=== PATIENT | female | born 1970 | race Caucasian/White ===

== ENCOUNTER 2017-01-19 21:53 | Inpatient (IN) | payer BC ==
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
--- NOTE | ~2017-01-19 | DS ---
Discharge Summary [facility] [address] [place]. [address] NAME: KAYLA SANTOS : 74 STATUS : ADM IN [facility]#: [id number] AGE: 47 ADM/REG DATE : 01/19/17 MR#: [id number] REPORT SERV DATE: 01/30/17 DICTATED BY: WANDA PHILIP DATE: 01/30/17 REPORT STATUS : Draft TRANSCRIBED BY: MODL DATE: 01/30/17 ADMISSION DATE: 01/19/2017 DISCHARGE DATE: FINAL DIAGNOSES: 1. Status post sepsis. 2. Bilateral pneumonia. 3. Acute hypoxic respiratory failure, resolved. 4. Bipolar disorder. 5. Tobacco abuse. CONSULTING PHYSICIAN: Dr. Vega for Critical Care and Dr. Portillo for ID. HOSPITAL COURSE: Please refer to the H and P done by Dr. Rojas dated on 01/20/2017 and the interim discharge summary done by Dr. Vega done on 01/26/2017. Briefly, this is a 47-year old female, who has bipolar disorder, smoker, recurrent pneumonia. She was treated outpatient-johnson for possible pneumonia with azithromycin and prednisone. However, she got worse, got admitted, placed on BiPAP, continued to decline, went to the intensive care unit, intubated, and placed on the vent. Bronch was done, which was negative for any kind of organism. She was continued on antibiotics, diuretics, and steroids and she improved. She got out of the intensive care unit and did remarkably well since then. ID has been following the patient and discontinued antibiotics, and she continued to do well and on discharge, she is saturating 100% on room air and walking around the halls. The patient expresses her wishes to go home, ID agrees, so we will be discharging her with the above diagnosis. She will be following up with Dr. David in a week's time, and she will be continuing her home medications of Cogentin 0.5 mg twice a day, Tegretol 200 mg at bedtime and 400 mg in the morning, Ativan 1 mg four times a day, nicotine patch 21 mg a day, Seroquel 200 mg at bedtime, trazodone 100 mg at bedtime, Ambien 10 mg at bedtime as needed and she will get a prescription for Medrol Dosepak to start tomorrow until it finishes, albuterol two puffs q.6 p.r.n. shortness of breath and Symbicort two puffs b.i.d. The patient will follow up with Dr. Garcia David in a week's time. This has been explained to her in front of her . TIME SPENT: 35 minutes. DICTATED BY: Michelle Potts/JOHANA Wanda Philip M.D. / [id number] Discharge Summary [address] [address] NAME: KAYLA SANTOS : 74 STATUS : ADM IN PAT#: [id number] AGE: 47 ADM/REG DATE : 01/19/17 MR#: [id number] REPORT SERV DATE: 01/30/17 DICTATED BY: WANDA PHILIP DATE: 01/30/17 REPORT STATUS : Draft TRANSCRIBED BY: JOHANA DATE: 01/30/17 CC: Michelle Potts M.D.
--- NOTE | ~2017-01-19 | CN ---
Consultation Report [facility] [address] [place]. [address] NAME: KAYLA COOPER : 74 STATUS : ADM IN PAT#: [id number] AGE: 47 ADM/REG DATE : 01/19/17 MR#: [id number] REPORT SERV DATE: 01/21/17 DICTATED BY: ANNA DIEZ IV DATE: 01/21/17 REPORT STATUS : Draft TRANSCRIBED BY: JOHANA DATE: 01/21/17 CRITICAL CARE CONSULT DATE OF CONSULTATION: 01/21/2017 REASON FOR REQUEST: Diffuse pulmonary infiltrates consistent with bacterial pneumonia with hypoxemic respiratory failure. HISTORY OF PRESENT ILLNESS: History was obtained from the patient and the records. Ms. Cooper is a 47-year-old female with a history of tobacco dependency, bipolar disorder, and recurrent pneumonias, who was transferred to the ICU for worsening oxygenation and pulmonary infiltrates. The patient reports that she developed symptoms of a respiratory infection about 10 days ago. This was predominantly a bronchitis though because of a worsening cough, was given a Z-Rod and prednisone. She noted clinical improvement, however, had recurrence of symptoms on Sunday. She presented to [facility] Emergency Room and is admitted on the 01/20/2017 with bilateral infiltrates. She received some IV fluids and was started on Rocephin and azithromycin. She had increasing oxygen needs and worsening shortness of breath for which an evaluation was performed today demonstrating significantly worse bilateral pulmonary infiltrates and now requiring 100% non-rebreather. Urine output is not documented; however, the patient has over 5 L of intake IV and oral since the presentation. The cough has been dry and nonproductive. She initially complained of fever sensation, however, that has not recurred recently. She does complain of dyspnea. There were no exposure to organic materials usually associated with hypersensitivity pneumonitis. She has no exposure to any ill individuals. There was no loss consciousness or aspiration. She denies rash or new arthralgias or arthritis. The patient has had recurrent pneumonias in the past and can document three where reportedly she had pulmonary infiltrates. She denies episodes of recurrent sinusitis. There is no history of known connective tissue disorder. Because of worsening status, she was moved to the ICU and currently placed on Vapotherm therapy. PULMONARY HISTORY: Remarkable for no history of childhood asthma, known adult obstructive lung disease though has had recurrent pneumonias as noted above. She is a current smoker though reportedly quit a week and a half ago when she became ill. She has an almost 30-pack year-smoking history. She is reportedly up-to-date on her seasonal influenza vaccine. PAST MEDICAL HISTORY: 1. Recurrent pneumonias. 2. Bipolar disorder. 3. Tobacco dependency. PAST SURGICAL HISTORY: 1. Lumbar spine surgery. 2. Cholecystectomy. 3. Appendectomy. Consultation Report [facility] [address] [place]. [address] NAME: KAYLA COOPER : 74 STATUS : ADM IN PAT#: [id number] AGE: 47 ADM/REG DATE : 01/19/17 MR#: [id number] REPORT SERV DATE: 01/21/17 DICTATED BY: ANNA DIEZ IV DATE: 01/21/17 REPORT STATUS : Draft TRANSCRIBED BY: JOHANA DATE: 01/21/17 4. Ovarian cyst surgery on two occasions. ALLERGIES: NAVANE. CURRENT MEDICATIONS: The patient is on Ativan 1 mg four times a day, Cogentin 0.5 mg twice a day, Desyrel 100 mg at bedtime, Habitrol patch 21 mg daily, Levaquin 750 mg daily, vancomycin per Pharmacy, Lovenox 40 mg daily, Proventil q.2 hours p.r.n., DuoNeb q.4 hours while awake and q.4 hours as needed, Pulmicort Respules 1 mg twice a day, Brovana unit dose twice a day, and several these are just being added Seroquel 300 mg at nighttime, Solu- Medrol 40 mg IV b.i.d., Tegretol 200 mg at bedtime and 400 mg in the morning, and Zosyn 3.375 g q.8 hours. SOCIAL HISTORY: Remarkable for the tobacco use as above. There is no alcohol or illicit drug use. She is and has one child. FAMILY HISTORY: Remarkable for mother with diabetes, coronary artery disease, and myelofibrosis. Father with metastatic thyroid cancer. REVIEW OF SYSTEMS: 14-system reviewed. Pertinent positives as noted above. PHYSICAL EXAMINATION: GENERAL: This is a middle-aged female, in moderate respiratory distress. VITAL SIGNS: Temperature is 99.7, respiratory rate is 36, heart rate is 98, saturations are currently 100% on Vapotherm, and blood pressure is 109/54. HEENT: Normocephalic and atraumatic. Extraocular movements are intact. Pupils react to light. Sclerae and conjunctivae normal. She has a Vapotherm nasal cannula in place. She has a Mallampati II airway with a small mouth. Good dentition. No oral lesions are noted. NECK: Without any palpable lymphadenopathy or thyromegaly. CHEST: The patient has inspiratory crackles and squeaks, and she coughs with each inspiratory effort. No wheezes or rhonchi noted. CARDIOVASCULAR: Jugular venous pulsations appear to be approximately 6 cm. She has 2+ carotid upstrokes. No obvious bruit. She has a regular, almost tachycardic S1, S2 with no clear murmur, S3, S4. Peripheral pulses are intact. ABDOMEN: Surgical scars noted. Soft, nontender. There are normoactive bowel sounds. There is no palpable hepatosplenomegaly or mass. EXTREMITIES: Demonstrate no cyanosis, clubbing, edema, or palpable cords. There is no rash or arthritis. NEUROLOGIC: Strength is 5/5 and sensation intact to light touch. LABORATORY DATA: Chest x-ray demonstrates worsening bilateral pulmonary infiltrates. Echocardiogram yesterday demonstrated normal left ventricular function. CBC: Hemoglobin 9.9, hematocrit 28.3, platelet count was 401,000, white blood cell count is Consultation Report [address] [address] NAME: KAYLA COOPER : 74 STATUS : ADM IN [facility]#: [id number] AGE: 47 ADM/REG DATE : 01/19/17 MR#: [id number] REPORT SERV DATE: 01/21/17 DICTATED BY: ANNA DIEZ IV DATE: 01/21/17 REPORT STATUS : Draft TRANSCRIBED BY: MODLorena DATE: 01/21/17 22.6. INR is 1.3. Chemistry: Sodium 134, potassium 3.4, chloride 101, bicarb 25, BUN 2, creatinine 0.4, glucose of 110. Albumin is 2.4, alkaline phosphatase is 147, TSH is normal. Troponin was negative. Tegretol is 5.8. Blood gas shows pH 7.46, pCO2 of 33, and pO2 of 38 on 6 L. ASSESSMENT AND PLAN: 1. Respiratory. The patient likely has infectious process cause; however, connective tissue serologies will be obtained. Vapotherm was started at 40 L/minute with 100% FiO2 and temperature of 37 Celsius. We will add Brovana to the previous Pulmicort and change albuterol to DuoNebs q.4 hours while awake. Make albuterol p.r.n. Steroids will be given Solu-Medrol 40 mg q.12 hours for severe pneumonia. Daily x-ray will be obtained. Oxygen will be titrated to maintain saturation in the 90% through 94% range. Tessalon Perles 200 mg daily for the cough and intubation if she worsens. 2. Infectious disease. Agree with broadening the antibiotic coverage as noted above. With the recurrent pneumonias, quantitative immunoglobulins will be obtained as well as IgG subclass levels. Florastor will be given one twice a day. Sputum will be sent for Gram stain culture, but all possible. HIV will be obtained. 3. Renal. We will replace the patient's potassium. Magnesium and phosphate level be obtained. Electrolyte replacement per protocol has been ordered. 4. Neurologic. Habitrol patch for tobacco dependency. We will continue the psychiatric medications. Discontinue the Ativan and give Precedex if needed. 5. Cardiovascular. We will keep the fluid balance even. We will INT IV. We will follow the blood pressure. 6. Hematologic. Lovenox for deep vein thrombosis prophylaxis. 7. Endocrinologic. Insulin sliding scale, on the steroids. Thyroid functions were normal. 8. Gastrointestinal. Clear liquids until we see which direction she goes. Protonix for gastrointestinal prophylaxis. The patient will have a Kincaid placed. Thank you for consulting us. The patient will be moved to the ICU, and we will assume primary care. Total time seen is from 0930 hours to 1025 hours for 55 minutes of critical care time. JIM/MODL Anna Diez IV, M.D. / [id number] CC: Michelle Saldivar IV, M.D.
--- NOTE | ~2017-01-19 | OP ---
Record Of Operation [facility] [address] [place] [address] NAME: KAYLA SANTOS : 74 STATUS : ADM IN PAT#: [id number] AGE: 47 ADM/REG DATE : 01/19/17 MR#: [id number] REPORT SERV DATE: 01/23/17 DICTATED BY: LISA VEGA DATE: 01/23/17 REPORT STATUS : Draft TRANSCRIBED BY: MODL DATE: 01/23/17 DATE OF PROCEDURE: 01/23/2017 PROCEDURE: Bronchoscopy with BAL. REASON: The patient with progressive infiltrates, hypoxic respiratory failure requiring intubation and mechanical ventilation. Progressive infiltrates despite broad-spectrum antibiotic therapy. Risks and benefits of the procedure were discussed with the patient's , who gave consent for the procedure. DESCRIPTION OF PROCEDURE: The patient was very well sedated during the procedure and received 50 mg of IV rocuronium to avoid further coughing or distress since the patient easily desaturates. The vent settings during this bronchoscopy were tidal volume of 440, rate of 12, FiO2 of 100%, with 8 of PEEP. The oxygen saturation remained 100% throughout the procedure. The bronchoscope was inserted into the existing 7-1/2 endotracheal tube, it was Olympus OER-pro. The leslie was sharp. Both the left and the right lung were sequentially examined and showed no endobronchial lesions. Slight friability of the mucosa was noted. No abnormalities were seen throughout the airways. The bronchoscope was wedged in the right lower lobe was lavaged with a total of 120 mL of sterile normal saline. The washings were collected in a trap and are to be sent for Gram stain, culture, cytology, PCP, fungal stain and culture, differential cell count, and AFB. /JOHANA Lisa Vega M.D. / [id number] CC: Michelle Saldivar IV, M.D.
--- NOTE | ~2017-01-19 | OP ---
Record Of [facility] [address] [place]. [address] NAME: KAYLA COOPER : 74 STATUS : ADM IN PAT#: [id number] AGE: 47 ADM/REG DATE : 01/19/17 MR#: [id number] REPORT SERV DATE: 01/23/17 DICTATED BY: KANDI MONTALVO DATE: 01/22/17 REPORT STATUS : Draft TRANSCRIBED BY: MODL DATE: 01/22/17 DATE OF PROCEDURE: 01/22/2017 PULMONARY CRITICAL CARE PROCEDURE NOTE PROCEDURE: Endotracheal intubation. INDICATION: Hypoxemic respiratory failure with worsening respiratory distress despite maximal Vapotherm. PREMEDICATION: 20 mg of etomidate IV x1, 50 mg of rocuronium IV x1, Precedex and fentanyl infusions postintubation for a ventilator sedation. PROCEDURE IN DETAILS: After explaining the concept of intubation, mechanical ventilation to Ms. oCoper, who was awake, cooperative, and interactive despite her respiratory distress, a decision was made to proceed with endotracheal intubation for invasive mechanical ventilation due to refractory hypoxemia despite maximal Vapotherm support. She was premedicated with RSI medications as above and positioned in usual fashion. A #3 GlideScope was advanced in her mouth and used to clearly visualize her vocal cords through which a 7.0 endotracheal tube was advanced without difficulty and secured to the patient at a depth of approximately 20 cm at the teeth. A followup x-ray was requested following intubation. There were bilateral breath sounds. Positive color change on CO2 detector. Absent breath sounds over the fundus of the stomach with bagging and condensation in the tube with bagging. A followup chest x-ray was requested and an OG tube was inserted, and a KUB is also requested. Her was updated on the events of the evening following intubation. RADHA/JOHANA Kandi Montalvo MD / [id number] CC: Michelle Saldivar IV, M.D.
--- NOTE | ~2017-01-19 | HP ---
History And Physical [id number] [place]. [address] NAME: KAYLA SANTOS : 74 STATUS : ADM IN [facility]#: [id number] AGE: 47 ADM/REG DATE : 01/19/17 MR#: [id number] REPORT SERV DATE: 01/20/17 DICTATED BY: DANIKA MCKEON DATE: 01/20/17 REPORT STATUS : Draft TRANSCRIBED BY: MODL DATE: 01/20/17 DATE OF ADMISSION: 01/19/2017 CHIEF COMPLAINT: A 47-year-old female, presenting with fevers, chills, and chest pain. HISTORY OF PRESENT ILLNESS: The patient's history was obtained through careful interview with the patient and her , coupled with review of [facility] medical records. The patient developed bronchitis about two and half weeks ago. She was placed on a Z-Rod and prednisone which she has just started about five days ago but despite this has continued to have a cough that is nonproductive, dyspnea on exertion, and chest pain. She describes chest discomfort at the base of her lungs, an aching quality, sharp quality as well, 9/10 severity exacerbated by coughing. She describes fevers and chills for a few days now, and today had an episode of vomiting and has been suffering from nausea for several days with a very poor appetite. No diarrhea, no lightheadedness. She has had a slight headache. No rash, no sinus drainage. No sore throat. REVIEW OF SYSTEMS: Otherwise, a 14-point review of systems was obtained and was negative. PAST MEDICAL HISTORY: 1. Bipolar disorder with depression and anxiety. 2. Recurrent pneumonia in 2012, 2014, and 2015. 3. COPD. PAST SURGICAL HISTORY: 1. Lumbar spine surgery. 2. Cholecystectomy. 3. Appendectomy. 4. Ovarian cyst surgery x2. ALLERGIES: TO NAVANE. SOCIAL HISTORY: Quit smoking 1-1/2 weeks ago. No alcohol abuse. She is . Lives in [place], [place]. She has a 4-1/2-year-old son. The patient is a homemaker. FAMILY HISTORY: Heart disease, cancer, COPD, and diabetes. CURRENT MEDICATIONS: Include Z-Rod, Cogentin 0.5 mg p.o. b.i.d., Tegretol 200 mg at bedtime and 400 mg in the morning, Advil p.r.n., Ativan 1 mg p.o. 4 times a day, nicotine patch, prednisone 20 mg p.o. b.i.d., Seroquel 300 mg p.o. daily, Desyrel 100 mg p.o. q.h.s., Ambien 10 mg at bedtime. History And Physical [address] [address] NAME: KAYLA SANTOS : 74 STATUS : ADM IN [facility]#: [id number] AGE: 47 ADM/REG DATE : 01/19/17 MR#: [id number] REPORT SERV DATE: 01/20/17 DICTATED BY: DANIKA MCKEON DATE: 01/20/17 REPORT STATUS : Draft TRANSCRIBED BY: JOHANA DATE: 01/20/17 PHYSICAL EXAMINATION: VITAL SIGNS: Temperature 100.2, pulse 108, blood pressure 130/64, respiratory rate 30, O2 saturation 95% on 2 L nasal cannula, and 89% on room air. GENERAL: An ill-appearing female, in evidence of some distress secondary to cough and chest pain. HEENT: Pupils are equal, round, and reactive to light. No conjunctival pallor. No scleral icterus. Nares are patent. Oropharynx is clear of obstruction. Moist mucous membranes. NECK: Trachea midline. No thyromegaly. LYMPH: No cervical lymphadenopathy. No supraclavicular lymphadenopathy. RESPIRATORY: The patient has dense rhonchi at the base of each lung and diminished breath sounds. I do not however, appreciate any egophony. The patient has some scattered expiratory wheezes but not too severe and a prolonged expiratory phase, a labored respiratory effort overall. CARDIOVASCULAR: Tachycardic, regular rhythm. No murmurs, rubs, or gallops. No extremity edema is appreciated. ABDOMEN: Soft, nontender, nondistended. Normal bowel sounds auscultated throughout. No hepatosplenomegaly. DERMATOLOGICAL: Warm and dry extremities. No pallor, no cyanosis. PSYCHIATRIC: Normal affect. Good mood. Alert and oriented x3. LABORATORY DATA: White blood cell count 32.9, hemoglobin 12, hematocrit 34, platelets 466. Sodium 128 from baseline of 138, potassium 3.4, chloride 94, bicarb 22, BUN , glucose 107. STUDIES: 1. Chest x-ray by my own evaluation shows basilar bilateral pneumonia. 2. EKG by my own evaluation shows sinus tachycardia. ASSESSMENT AND PLAN: 1. Sepsis with lactic acid of 2.0, tachycardia, hypoxia, white blood cell count of 32.9. Check blood cultures. Place on appropriate IV antibiotics. 2. Bilateral pneumonia. Check blood cultures. Place on IV antibiotics. 3. Bipolar disorder. 4. Hyponatremia. This seems to be a hypovolemic hyponatremia by exam and history. Place on IV fluids. We will also check SIADH studies. 5. Chronic obstructive pulmonary disease. No active wheezes. KPL/MODL Danika Mckeon M.D. / [id number] History And Physical [address] [address] NAME: KAYLA SANTOS : 74 STATUS : ADM IN [facility]#: [id number] AGE: 47 ADM/REG DATE : 01/19/17 MR#: [id number] REPORT SERV DATE: 01/20/17 DICTATED BY: DANIKA MCKEON DATE: 01/20/17 REPORT STATUS : Draft TRANSCRIBED BY: JOHANA DATE: 01/20/17 CC: MD Garcia Fernández M.D.
--- NOTE | ~2017-01-19 | IDS ---
Interim Discharge Summary [facility] [address] [place]. [address] NAME: KAYLA SANTOS : 74 STATUS : ADM IN PAT#: [id number] AGE: 47 ADM/REG DATE : 01/19/17 MR#: [id number] REPORT SERV DATE: 01/26/17 DICTATED BY: LISA VEGA DATE: 01/26/17 REPORT STATUS : Draft TRANSCRIBED BY: MODL DATE: 01/26/17 ADMISSION DATE: 01/19/2017 DISCHARGE DATE: This is a 47-year-old patient with a history of heavy smoking and bipolar disease and recurrent pneumonias transferred for hypoxic respiratory failure and worsening pulmonary infiltrates to the MICU on the . For details, please see consultation from Dr. Diez and H and P from Dr. Roger Rojas. The patient was started on BiPAP and continued to decline with regard to her respiratory status, finally requiring intubation and mechanical ventilation on the 22 of January. The patient apparently was treated as an outpatient with a Z-Rod and prednisone and apparently has had recurrent pneumonias. Immunoglobulin levels were sent and actually were not critically low. TOMMIE was within normal limits. HIV was nonreactive. Influenza A and B were negative. Strep pneumoniae antigen and strep Legionella antigen were both negative. ANCA was negative. Anti-IgA antibody, IgG was less than 16. After intubation, the patient underwent bronchoscopy the following day with BAL. No PCP was noted. No evidence of malignancy was seen on cytology. Normal kelly has grown out of one of the bronchial washing specimen. Fungus was not seen on stain. Cultures are still pending. No acid-fast seen and the patient was continued on levofloxacin, Zosyn, and vancomycin. Infectious Diseases was consulted because of the progressive nature of the infiltrates to assist in any further antibiotic management. The patient just continued to improve on her own and along with diuretics and was continued on IV steroids which are being weaned. No significant antibiotic changes were made and the x-ray seemed to improve on its own without any further intervention. The patient was then successfully extubated on the 26 of January. And currently is on a nasal cannula and continuing bronchodilator protocol. She is still an active smoker before she was admitted and so she continues on a nicotine patch. She has a history of bipolar disorder and continues on her usual medications. The plan will be to progress her diet and activity and if she continues to improve, she can be transferred back to the Hospitalist Service. /JOHANA Lisa Vega M.D. / [id number] CC: Michelle Saldivar IV, M.D.
[2017-01-19 20:45] LABS: HEMOGLOBIN 12.2 g/dL (12.0-16.0); MEAN CORPUS HGB CONC 35.5 g/dL (32.0-36.0); MEAN PLATELET VOLUME 7.7 fL (9.2-13.0); PLATELET COUNT 466 10/3/uL (150-400); RBC DISTRIBUTION WIDTH 12.9 % (12.0-16.0); RED CELL COUNT 3.81 10/6/uL (4.0-5.6)
[2017-01-19 20:47] LABS: ER CBC TAT 0 Hrs 08 Mins; HEMATOCRIT 34.4 % (36.0-48.0); MANUAL DIFF YES %; MEAN CORPUSCULAR VOLUME 90.3 fL (80-100); WHITE BLOOD CELLS 32.9 10/3/uL (4.5-10.5)
[2017-01-19 21:01] LABS: ALBUMIN 3.2 G/DL (3.5-5.0); CALCIUM, SERUM 8.6 MG/DL (8.5-10.4); CHLORIDE, SERUM 94 MMOL/L (96-112); GFR AFRICAN AMERICAN 128 ML/MIN (>=60); GFR NON AFRICAN AMERICAN 110 ML/MIN (>=60); POTASSIUM, SERUM 3.4 MMOL/L (3.5-5.3); SGOT(AST) 33 U/L (5-40); SGPT(ALT) 18 U/L (5-65); TOTAL BILIRUBIN 0.4 MG/DL (0-1.2); TOTAL PROTEIN 6.8 G/DL (6.0-8.5)
[2017-01-19 21:03] LABS: A/G RATIO 0.9 (0.7-1.9); ALKALINE PHOSPHATASE 127 U/L (45-117); BUN (BLOOD UREA NITROGEN) < 1 MG/DL (6-23); CO2 (CARBON DIOXIDE) 22 MMOL/L (24-34); GLOBULIN 3.6 G/DL (2.5-4.1); GLUCOSE, SERUM 107 MG/DL (60-99); SODIUM, SERUM 128 MMOL/L (135-148)
[2017-01-19 21:09] LABS: BAND NEUTROPHILS 8 %; ER DIFF TAT 0 Hrs 30 Mins; LYMPHOCYTES 1 %; LYMPHOCYTES ABSOLUTE (CALC) 0.33 10/3/uL (0.67-4.30); MONOCYTES 1 %; MONOCYTES ABSOLUTE (CALC) 0.33 10/3/uL (0.21-1.20); NEUTROPHILS ABSOLUTE (CALC) 32.24 10/3/uL (2.02-8.40); SEGMENTED NEUTROPHIL (0) 90 %; TOTAL NUCLEATED CELLS 100
[2017-01-19 21:10] LABS: PLATELET ESTIMATE SLT INC (ADEQUATE); RBC MORPHOLOGY NORM (NORMAL)
[~2017-01-19 21:53] MED LIST: AMB10 PO; DCN100 PO; DEPAKOT500 PO; ELDERTONIC PO; FERROUS SULF325 M1 PO; KLONO1 PO; MULTIVITAMI1 PO; PRISTIQ100 MG PO; SELENIUM PO; SEROQUEL XR200 MG PO; SEROQUEL300 MG PO; VITAMIN D31000 UNIT PO; ZOL50 PO
[2017-01-19 22:10] LABS: INFLUENZA A SCREEN NEGATIVE (NEGATIVE); INFLUENZA B SCREEN NEGATIVE (NEGATIVE)
[2017-01-19 22:49] LABS: INTERNATIONAL NORMAL RATI 1.2 UNITS (-); PARTIAL THROMBO TIME 31.5 SEC (22.5-37.2); PROTIME (NOT ORD) 14.6 SEC (12.0-14.5)
[2017-01-19 22:53] LABS: PROCALCITONIN 0.65 ng/mL (<0.5)
[2017-01-19] MEDS ORDERED: ATV1 PO (23:27)
[2017-01-19] MEDS ORDERED: TRAZ100 PO (23:28)
[2017-01-19] MEDS ORDERED: Z-PAK PO (23:29)
[2017-01-19] MEDS ORDERED: P20 PO (23:29)
[2017-01-19] MEDS ORDERED: TEG200 PO ×2 (23:30)
[2017-01-19] MEDS ORDERED: COG0.5 PO (23:31)
[2017-01-19] MEDS ORDERED: SEROQUEL300 MG PO (23:31)
[2017-01-19] MEDS ORDERED: AMB10 PO (23:32)
[2017-01-19] MEDS ORDERED: ADVIL PO (23:33)
[2017-01-19] MEDS ORDERED: HABIT21 TOP (23:34)
[2017-01-20 05:28] LABS: HEMATOCRIT 31.1 % (36.0-48.0); HEMOGLOBIN 10.9 g/dL (12.0-16.0); MEAN CORPUSCULAR HEMOGLOB 31.5 pg (26.0-34.0); MEAN CORPUSCULAR VOLUME 89.9 fL (80-100); MEAN PLATELET VOLUME 7.8 fL (9.2-13.0); PLATELET COUNT 441 10/3/uL (150-400); RBC DISTRIBUTION WIDTH 13.1 % (12.0-16.0); RED CELL COUNT 3.46 10/6/uL (4.0-5.6)
[2017-01-20 05:38] LABS: INTERNATIONAL NORMAL RATI 1.3 UNITS (-); PROTIME (NOT ORD) 16.5 SEC (12.0-14.5)
[2017-01-20 05:46] LABS: A/G RATIO 0.8 (0.7-1.9); ALBUMIN 2.7 G/DL (3.5-5.0); BUN (BLOOD UREA NITROGEN) 3 MG/DL (6-23); CALCIUM, SERUM 8.5 MG/DL (8.5-10.4); CHLORIDE, SERUM 102 MMOL/L (96-112); CO2 (CARBON DIOXIDE) 26 MMOL/L (24-34); CPK 68 U/L (0-200); CREATININE 0.43 MG/DL (0.55-1.02); GFR AFRICAN AMERICAN 142 ML/MIN (>=60); GFR NON AFRICAN AMERICAN 123 ML/MIN (>=60); GLOBULIN 3.2 G/DL (2.5-4.1); GLUCOSE, SERUM 103 MG/DL (60-99); POTASSIUM, SERUM 3.6 MMOL/L (3.5-5.3); SGOT(AST) 31 U/L (5-40); SGPT(ALT) 17 U/L (5-65); TEGRETOL (CARBAMAZEPINE) 5.8 MCG/ML (4.0-10.0); TOTAL BILIRUBIN 0.8 MG/DL (0-1.2); TOTAL PROTEIN 5.9 G/DL (6.0-8.5); TROPONIN I <0.02 NG/ML (<0.05); ULTRASENSITIVE TSH 0.817 MCIU/ML (0.358-3.740)
[2017-01-20 05:48] LABS: MANUAL DIFF YES %; WHITE BLOOD CELLS 28.4 10/3/uL (4.5-10.5)
[2017-01-20 06:00] LABS: ALKALINE PHOSPHATASE 111 U/L (45-117); CK-MB 0.8 NG/ML; SODIUM, SERUM 136 MMOL/L (135-148)
[2017-01-20 06:05] LABS: PROCALCITONIN 2.43 ng/mL (<0.5)
[2017-01-20 07:15] LABS: BAND NEUTROPHILS 4 %; EOSINOPHILS 1 %; EOSINOPHILS ABSOLUTE (CALC) 0.28 10/3/uL (0.0-0.53); LYMPHOCYTES 8 %; LYMPHOCYTES ABSOLUTE (CALC) 2.27 10/3/uL (0.67-4.30); MONOCYTES 2 %; MONOCYTES ABSOLUTE (CALC) 0.57 10/3/uL (0.21-1.20); NEUTROPHILS ABSOLUTE (CALC) 25.28 10/3/uL (2.02-8.40); PLATELET ESTIMATE SLT INC (ADEQUATE); SEGMENTED NEUTROPHIL (0) 85 %; TOTAL NUCLEATED CELLS 100
[2017-01-20 07:16] LABS: RBC MORPHOLOGY NORM (NORMAL)
[2017-01-20 16:04] LABS: ASCORBIC ACID (UR NOT ORDER) NEG (NEG); BILIRUBIN, URINE NEGATIVE (NEG); KETONE, URINE NEGATIVE (NEG); LEUKOCYTE ESTERASE(NOT OR NEG (NEG); WBC (NOT ORDERED) (RFLEX) 1 (0-5)
[2017-01-20 17:28] LABS: AMPHETAMINES (NOT ORD) NEG (NEG); BARBITURATES (NOT ORDERED NEG (NEG); BENZODIAZEPINES (NOT ORD) POS (NEG); CANNABINOIDS (THC) NEG (NEG); COCAINE (NOT ORDERED) NEG (NEG); OPIATES POS (NEG); PHENCYCLIDINE(PCP) NEG (NEG); TRICYCLICS POS (NEG)
[2017-01-21 06:21] LABS: HEMATOCRIT 28.3 % (36.0-48.0); HEMOGLOBIN 9.9 g/dL (12.0-16.0); MEAN CORPUSCULAR HEMOGLOB 31.9 pg (26.0-34.0); MEAN CORPUSCULAR VOLUME 91.3 fL (80-100); PLATELET COUNT 401 10/3/uL (150-400); RBC DISTRIBUTION WIDTH 13.4 % (12.0-16.0); WHITE BLOOD CELLS 22.6 10/3/uL (4.5-10.5)
[2017-01-21 06:22] LABS: MANUAL DIFF YES %
[2017-01-21 06:29] LABS: A/G RATIO 0.8 (0.7-1.9); ALBUMIN 2.4 G/DL (3.5-5.0); ALKALINE PHOSPHATASE 147 U/L (45-117); BUN (BLOOD UREA NITROGEN) 2 MG/DL (6-23); CALCIUM, SERUM 8.2 MG/DL (8.5-10.4); CHLORIDE, SERUM 101 MMOL/L (96-112); CO2 (CARBON DIOXIDE) 25 MMOL/L (24-34); CREATININE 0.48 MG/DL (0.55-1.02); GFR AFRICAN AMERICAN 137 ML/MIN (>=60); GFR NON AFRICAN AMERICAN 118 ML/MIN (>=60); GLOBULIN 3.2 G/DL (2.5-4.1); GLUCOSE, SERUM 110 MG/DL (60-99); POTASSIUM, SERUM 3.4 MMOL/L (3.5-5.3); SGOT(AST) 28 U/L (5-40); SGPT(ALT) 14 U/L (5-65); SODIUM, SERUM 134 MMOL/L (135-148); TOTAL BILIRUBIN 0.7 MG/DL (0-1.2); TOTAL PROTEIN 5.6 G/DL (6.0-8.5)
[2017-01-21 06:45] LABS: LYMPHOCYTES 5 %; LYMPHOCYTES ABSOLUTE (CALC) 1.13 10/3/uL (0.67-4.30); MONOCYTES 6 %; MONOCYTES ABSOLUTE (CALC) 1.36 10/3/uL (0.21-1.20); NEUTROPHILS ABSOLUTE (CALC) 20.11 10/3/uL (2.02-8.40); PLATELET ESTIMATE SLT INC (ADEQUATE); RBC MORPHOLOGY NORM (NORMAL); SEGMENTED NEUTROPHIL (0) 89 %; TOTAL NUCLEATED CELLS 100
[2017-01-21 09:18] LABS: ALLENS TEST Pos; CARBOXYHEMOGLOBIN 0.1 % (0-3); DEVICE HFNC; HCO3 (ACTUAL BICARBONATE) 23.3 MEQ/L (23-27); HEMOBLOGIN CONTENT 11.6 G/DL (12-16); INSTRUMENT SERIAL # 35151; METHEMOGLOBIN 0.5 % (0-3); O2 CONTENT 12.1 VOL% (18-24); OPERATOR ID 14335; PCO2 (CO2 TENSION) 33 MMHG (35-45); PO2 (O2 TENSION) 38 MMHG (79-93); SAMPLE Arterial; pH 7.46 (7.37-7.43)
[2017-01-21 11:45] LABS: IMMUNOGLOBULIN A 160 MG/DL (70-420); IMMUNOGLOBULIN M 40 MG/DL (30-270)
[2017-01-21 12:03] LABS: PHOSPHORUS, SERUM 2.5 MG/DL (2.5-4.5)
[2017-01-22 05:08] LABS: BASOPHILS 0.1 %; BASOPHILS ABSOLUTE 0.01 10/3/uL (0.0-0.16); EOSINOPHILS 0.1 %; EOSINOPHILS ABSOLUTE 0.01 10/3/uL (0.0-0.53); HEMOGLOBIN 9.2 g/dL (12.0-16.0); IMMATURE GRANULOCYTES 0.3 %; IMMATURE GRANULOCYTES ABSOLUTE 0.05 10/3/uL (0.0-0.11); LYMPHOCYTES 3.7 %; LYMPHOCYTES ABSOLUTE 0.58 10/3/uL (0.67-4.30); MEAN CORPUS HGB CONC 34.1 g/dL (32.0-36.0); MEAN CORPUSCULAR HEMOGLOB 31.5 pg (26.0-34.0); MEAN CORPUSCULAR VOLUME 92.5 fL (80-100); MONOCYTES 2.6 %; MONOCYTES ABSOLUTE 0.41 10/3/uL (0.21-1.20); NEUTROPHILS 93.2 %; PLATELET COUNT 345 10/3/uL (150-400); RBC DISTRIBUTION WIDTH 13.3 % (12.0-16.0); RED CELL COUNT 2.92 10/6/uL (4.0-5.6); WHITE BLOOD CELLS 15.7 10/3/uL (4.5-10.5)
[2017-01-22 05:16] LABS: MANUAL DIFF NO %
[2017-01-22 05:21] LABS: BUN (BLOOD UREA NITROGEN) 3 MG/DL (6-23); CALCIUM, SERUM 8.7 MG/DL (8.5-10.4); CHLORIDE, SERUM 100 MMOL/L (96-112); CO2 (CARBON DIOXIDE) 25 MMOL/L (24-34); CREATININE 0.54 MG/DL (0.55-1.02); GFR AFRICAN AMERICAN 132 ML/MIN (>=60); GFR NON AFRICAN AMERICAN 114 ML/MIN (>=60); GLUCOSE, SERUM 117 MG/DL (60-99); PHOSPHORUS, SERUM 3.1 MG/DL (2.5-4.5); SODIUM, SERUM 130 MMOL/L (135-148); VANCOMYCIN TROUGH 12.3 MCG/ML (10.0-20.0)
[2017-01-22 05:26] LABS: POTASSIUM, SERUM 4.3 MMOL/L (3.5-5.3)
[2017-01-22 09:18] LABS: ANA TITER <1:40 TITER
[2017-01-23 00:09] LABS: ALLENS TEST Pos; BE (BASE EXCESS) -3.2 MEQ/L (0 +/- 2.5); CARBOXYHEMOGLOBIN 0.3 % (0-3); HCO3 (ACTUAL BICARBONATE) 22.5 MEQ/L (23-27); HEMOBLOGIN CONTENT 10.7 G/DL (12-16); INSTRUMENT SERIAL # 8083; METHEMOGLOBIN 0.3 % (0-3); MODE CMV; O2 CONTENT 14.9 VOL% (18-24); OPERATOR ID 32193; PCO2 (CO2 TENSION) 43 MMHG (35-45); PO2 (O2 TENSION) 128 MMHG (79-93); SAMPLE Arterial; TIDAL VOLUME 340 ML; pH 7.34 (7.37-7.43)
[2017-01-23 04:16] LABS: BASOPHILS 0 %; EOSINOPHILS 0.1 %; EOSINOPHILS ABSOLUTE 0.01 10/3/uL (0.0-0.53); HEMATOCRIT 26.5 % (36.0-48.0); HEMOGLOBIN 9.1 g/dL (12.0-16.0); IMMATURE GRANULOCYTES 0.4 %; IMMATURE GRANULOCYTES ABSOLUTE 0.07 10/3/uL (0.0-0.11); LYMPHOCYTES 4.5 %; LYMPHOCYTES ABSOLUTE 0.79 10/3/uL (0.67-4.30); MEAN CORPUS HGB CONC 34.3 g/dL (32.0-36.0); MEAN CORPUSCULAR HEMOGLOB 31.7 pg (26.0-34.0); MEAN CORPUSCULAR VOLUME 92.3 fL (80-100); MEAN PLATELET VOLUME 8.6 fL (9.2-13.0); MONOCYTES 2.8 %; MONOCYTES ABSOLUTE 0.49 10/3/uL (0.21-1.20); NEUTROPHILS 92.2 %; NEUTROPHILS ABSOLUTE 16.39 10/3/uL (2.02-8.40); PLATELET COUNT 405 10/3/uL (150-400); RED CELL COUNT 2.87 10/6/uL (4.0-5.6); WHITE BLOOD CELLS 17.8 10/3/uL (4.5-10.5)
[2017-01-23 04:18] LABS: MANUAL DIFF NO %
[2017-01-23 04:27] LABS: ALLENS TEST Pos; BE (BASE EXCESS) -1.4 MEQ/L (0 +/- 2.5); CARBOXYHEMOGLOBIN 0.6 % (0-3); HCO3 (ACTUAL BICARBONATE) 24.1 MEQ/L (23-27); INSTRUMENT SERIAL # 8083; METHEMOGLOBIN 0.2 % (0-3); MODE CMV; O2 CONTENT 19.8 VOL% (18-24); OPERATOR ID 32193; PCO2 (CO2 TENSION) 43 MMHG (35-45); PO2 (O2 TENSION) 193 MMHG (79-93); SAMPLE Arterial; TIDAL VOLUME 340 ML; pH 7.36 (7.37-7.43)
[2017-01-23 04:31] LABS: BUN (BLOOD UREA NITROGEN) 5 MG/DL (6-23); CALCIUM, SERUM 8.6 MG/DL (8.5-10.4); CHLORIDE, SERUM 95 MMOL/L (96-112); CO2 (CARBON DIOXIDE) 25 MMOL/L (24-34); CREATININE 0.48 MG/DL (0.55-1.02); GFR AFRICAN AMERICAN 137 ML/MIN (>=60); GFR NON AFRICAN AMERICAN 118 ML/MIN (>=60); GLUCOSE, SERUM 126 MG/DL (60-99); POTASSIUM, SERUM 4.4 MMOL/L (3.5-5.3); SODIUM, SERUM 128 MMOL/L (135-148)
[2017-01-23 04:33] LABS: PHOSPHORUS, SERUM 4.3 MG/DL (2.5-4.5)
[2017-01-23 05:46] LABS: PROCALCITONIN 0.25 ng/mL (<0.5)
[2017-01-23 14:51] LABS: ALLENS TEST Pos; BE (BASE EXCESS) 2.5 MEQ/L (0 +/- 2.5); CARBOXYHEMOGLOBIN 0.3 % (0-3); HCO3 (ACTUAL BICARBONATE) 27.9 MEQ/L (23-27); HEMOBLOGIN CONTENT 9.4 G/DL (12-16); INSTRUMENT SERIAL # 8083; METHEMOGLOBIN 0.2 % (0-3); MODE APRV; O2 CONTENT 12.1 VOL% (18-24); OPERATOR ID 14382; PCO2 (CO2 TENSION) 48 MMHG (35-45); PO2 (O2 TENSION) 67 MMHG (79-93); SAMPLE Arterial; TIDAL VOLUME 340 ML; pH 7.39 (7.37-7.43)
[2017-01-23 15:57] LABS: BD FL LYMPH (NOT ORD) 2 %; BF BASO (NOT OF) 0 %; BF LARGE MONONUCLEAR 29 %; BODY FLUID EOS (NOT ORD) 0 %; BODY FLUID SEG (NOT ORD) 69 %
[2017-01-23 15:58] LABS: BD FL SOURCE (NOT ORD) BAL; BF TOTAL CELL CT (NOT ORD 309 /MM3; BODY FLUID RBC (NOT ORD) 1000 /MM3
[2017-01-23 20:13] LABS: IMMUNOGLOBULIN E 13.6 kU/L (0.0-158.0)
[2017-01-23 22:18] LABS: ANCA <1:20 (()); MYELOPEROXIDASE ANTIBODY <0.2 AI (<1.0); PROTEINASE 3 ANTIBODY <0.2 AI (<1.0)
[2017-01-24 04:24] LABS: BASOPHILS 0 %; EOSINOPHILS 0 %; HEMATOCRIT 24.8 % (36.0-48.0); HEMOGLOBIN 8.3 g/dL (12.0-16.0); IMMATURE GRANULOCYTES 0.4 %; IMMATURE GRANULOCYTES ABSOLUTE 0.03 10/3/uL (0.0-0.11); LYMPHOCYTES 7.8 %; LYMPHOCYTES ABSOLUTE 0.66 10/3/uL (0.67-4.30); MEAN CORPUS HGB CONC 33.5 g/dL (32.0-36.0); MEAN CORPUSCULAR HEMOGLOB 31.7 pg (26.0-34.0); MEAN CORPUSCULAR VOLUME 94.7 fL (80-100); MEAN PLATELET VOLUME 8.4 fL (9.2-13.0); MONOCYTES 6.4 %; MONOCYTES ABSOLUTE 0.54 10/3/uL (0.21-1.20); NEUTROPHILS 85.4 %; NEUTROPHILS ABSOLUTE 7.19 10/3/uL (2.02-8.40); PLATELET COUNT 425 10/3/uL (150-400); RBC DISTRIBUTION WIDTH 13.4 % (12.0-16.0); RED CELL COUNT 2.62 10/6/uL (4.0-5.6)
[2017-01-24 04:28] LABS: MANUAL DIFF NO %; WHITE BLOOD CELLS 8.4 10/3/uL (4.5-10.5)
[2017-01-24 04:44] LABS: A/G RATIO 0.6 (0.7-1.9); ALBUMIN 2.1 G/DL (3.5-5.0); ALKALINE PHOSPHATASE 90 U/L (45-117); BUN (BLOOD UREA NITROGEN) 5 MG/DL (6-23); CALCIUM, SERUM 8.7 MG/DL (8.5-10.4); CHLORIDE, SERUM 100 MMOL/L (96-112); CO2 (CARBON DIOXIDE) 30 MMOL/L (24-34); CREATININE 0.47 MG/DL (0.55-1.02); GFR AFRICAN AMERICAN 138 ML/MIN (>=60); GFR NON AFRICAN AMERICAN 119 ML/MIN (>=60); GLOBULIN 3.5 G/DL (2.5-4.1); GLUCOSE, SERUM 109 MG/DL (60-99); PHOSPHORUS, SERUM 3.9 MG/DL (2.5-4.5); POTASSIUM, SERUM 4.3 MMOL/L (3.5-5.3); SGOT(AST) 8 U/L (5-40); SGPT(ALT) 11 U/L (5-65); SODIUM, SERUM 137 MMOL/L (135-148); TOTAL BILIRUBIN 0.2 MG/DL (0-1.2); TOTAL PROTEIN 5.6 G/DL (6.0-8.5)
[2017-01-24 04:53] LABS: BE (BASE EXCESS) 5.4 MEQ/L (0 +/- 2.5); CARBOXYHEMOGLOBIN 0.3 % (0-3); HCO3 (ACTUAL BICARBONATE) 30.4 MEQ/L (23-27); INSTRUMENT SERIAL # 8083; METHEMOGLOBIN 0.4 % (0-3); PCO2 (CO2 TENSION) 47 MMHG (35-45); PO2 (O2 TENSION) 111 MMHG (79-93); pH 7.43 (7.37-7.43)
[2017-01-24 04:54] LABS: ALLENS TEST Pos; HEMOBLOGIN CONTENT 8.6 G/DL (12-16); MODE CMV; OPERATOR ID 35390; SAMPLE Arterial; TIDAL VOLUME 340 ML
[2017-01-24 05:42] LABS: PROCALCITONIN 0.14 ng/mL (<0.5)
[2017-01-24 12:55] LABS: IMMUNOGLOBULIN D <0.7 mg/dL (<15.4)
[2017-01-25 03:58] LABS: ALLENS TEST Pos; BE (BASE EXCESS) 9.7 MEQ/L (0 +/- 2.5); CARBOXYHEMOGLOBIN 0.3 % (0-3); HCO3 (ACTUAL BICARBONATE) 36.3 MEQ/L (23-27); HEMOBLOGIN CONTENT 8.9 G/DL (12-16); INSTRUMENT SERIAL # 8083; METHEMOGLOBIN 0.3 % (0-3); MODE CMV; OPERATOR ID 17589; PCO2 (CO2 TENSION) 63 MMHG (35-45); PO2 (O2 TENSION) 83 MMHG (79-93); SAMPLE Arterial; TIDAL VOLUME 340 ML; pH 7.38 (7.37-7.43)
[2017-01-25 05:17] LABS: BASOPHILS 0.1 %; BASOPHILS ABSOLUTE 0.01 10/3/uL (0.0-0.16); EOSINOPHILS 0.1 %; EOSINOPHILS ABSOLUTE 0.01 10/3/uL (0.0-0.53); HEMATOCRIT 24.8 % (36.0-48.0); HEMOGLOBIN 8.3 g/dL (12.0-16.0); IMMATURE GRANULOCYTES 0.5 %; IMMATURE GRANULOCYTES ABSOLUTE 0.04 10/3/uL (0.0-0.11); LYMPHOCYTES 10.6 %; LYMPHOCYTES ABSOLUTE 0.87 10/3/uL (0.67-4.30); MEAN CORPUS HGB CONC 33.5 g/dL (32.0-36.0); MEAN CORPUSCULAR HEMOGLOB 32.2 pg (26.0-34.0); MEAN CORPUSCULAR VOLUME 96.1 fL (80-100); MONOCYTES 9.7 %; MONOCYTES ABSOLUTE 0.79 10/3/uL (0.21-1.20); NEUTROPHILS ABSOLUTE 6.46 10/3/uL (2.02-8.40); PLATELET COUNT 423 10/3/uL (150-400); RBC DISTRIBUTION WIDTH 13.5 % (12.0-16.0); RED CELL COUNT 2.58 10/6/uL (4.0-5.6); WHITE BLOOD CELLS 8.2 10/3/uL (4.5-10.5)
[2017-01-25 05:18] LABS: MANUAL DIFF NO %
[2017-01-25 05:31] LABS: A/G RATIO 0.6 (0.7-1.9); ALBUMIN 2.1 G/DL (3.5-5.0); ALKALINE PHOSPHATASE 87 U/L (45-117); BUN (BLOOD UREA NITROGEN) 4 MG/DL (6-23); CALCIUM, SERUM 8.6 MG/DL (8.5-10.4); CHLORIDE, SERUM 100 MMOL/L (96-112); CO2 (CARBON DIOXIDE) 36 MMOL/L (24-34); CREATININE 0.41 MG/DL (0.55-1.02); GFR AFRICAN AMERICAN 145 ML/MIN (>=60); GFR NON AFRICAN AMERICAN 125 ML/MIN (>=60); GLOBULIN 3.4 G/DL (2.5-4.1); GLUCOSE, SERUM 147 MG/DL (60-99); PHOSPHORUS, SERUM 3.6 MG/DL (2.5-4.5); POTASSIUM, SERUM 3.8 MMOL/L (3.5-5.3); SGOT(AST) 9 U/L (5-40); SGPT(ALT) 9 U/L (5-65); SODIUM, SERUM 139 MMOL/L (135-148); TOTAL BILIRUBIN 0.2 MG/DL (0-1.2); TOTAL PROTEIN 5.5 G/DL (6.0-8.5)
[2017-01-26 03:37] LABS: ALLENS TEST Pos; BE (BASE EXCESS) 8.8 MEQ/L (0 +/- 2.5); CARBOXYHEMOGLOBIN 0.7 % (0-3); HCO3 (ACTUAL BICARBONATE) 35.5 MEQ/L (23-27); HEMOBLOGIN CONTENT 8.3 G/DL (12-16); INSTRUMENT SERIAL # 8083; METHEMOGLOBIN 0.4 % (0-3); O2 CONTENT 11.7 VOL% (18-24); OPERATOR ID 13415; PCO2 (CO2 TENSION) 64 MMHG (35-45); PO2 (O2 TENSION) 131 MMHG (79-93); SAMPLE Arterial; TIDAL VOLUME 340 ML; pH 7.36 (7.37-7.43)
[2017-01-26 05:00] LABS: BASOPHILS 0.2 %; BASOPHILS ABSOLUTE 0.02 10/3/uL (0.0-0.16); EOSINOPHILS 1.2 %; HEMOGLOBIN 8.3 g/dL (12.0-16.0); IMMATURE GRANULOCYTES 0.6 %; IMMATURE GRANULOCYTES ABSOLUTE 0.05 10/3/uL (0.0-0.11); LYMPHOCYTES ABSOLUTE 1.53 10/3/uL (0.67-4.30); MEAN CORPUS HGB CONC 31.9 g/dL (32.0-36.0); MEAN CORPUSCULAR HEMOGLOB 31.4 pg (26.0-34.0); MEAN CORPUSCULAR VOLUME 98.5 fL (80-100); MEAN PLATELET VOLUME 7.9 fL (9.2-13.0); MONOCYTES 14.7 %; MONOCYTES ABSOLUTE 1.25 10/3/uL (0.21-1.20); NEUTROPHILS 65.3 %; NEUTROPHILS ABSOLUTE 5.53 10/3/uL (2.02-8.40); PLATELET COUNT 445 10/3/uL (150-400); RBC DISTRIBUTION WIDTH 13.9 % (12.0-16.0); RED CELL COUNT 2.64 10/6/uL (4.0-5.6); WHITE BLOOD CELLS 8.5 10/3/uL (4.5-10.5)
[2017-01-26 05:04] LABS: BUN (BLOOD UREA NITROGEN) 6 MG/DL (6-23); CALCIUM, SERUM 8.7 MG/DL (8.5-10.4); CHLORIDE, SERUM 104 MMOL/L (96-112); CO2 (CARBON DIOXIDE) 35 MMOL/L (24-34); CREATININE 0.43 MG/DL (0.55-1.02); GFR AFRICAN AMERICAN 142 ML/MIN (>=60); GFR NON AFRICAN AMERICAN 123 ML/MIN (>=60); GLUCOSE, SERUM 120 MG/DL (60-99); POTASSIUM, SERUM 3.6 MMOL/L (3.5-5.3); SODIUM, SERUM 144 MMOL/L (135-148)
[2017-01-26 05:07] LABS: MANUAL DIFF NO %
[2017-01-27 04:29] LABS: BASOPHILS 0.1 %; BASOPHILS ABSOLUTE 0.01 10/3/uL (0.0-0.16); EOSINOPHILS 0.3 %; EOSINOPHILS ABSOLUTE 0.03 10/3/uL (0.0-0.53); HEMATOCRIT 28.3 % (36.0-48.0); HEMOGLOBIN 9.3 g/dL (12.0-16.0); IMMATURE GRANULOCYTES 0.9 %; IMMATURE GRANULOCYTES ABSOLUTE 0.08 10/3/uL (0.0-0.11); LYMPHOCYTES 17.1 %; LYMPHOCYTES ABSOLUTE 1.51 10/3/uL (0.67-4.30); MEAN CORPUS HGB CONC 32.9 g/dL (32.0-36.0); MEAN CORPUSCULAR HEMOGLOB 31.2 pg (26.0-34.0); MEAN PLATELET VOLUME 7.9 fL (9.2-13.0); MONOCYTES 8.3 %; MONOCYTES ABSOLUTE 0.73 10/3/uL (0.21-1.20); NEUTROPHILS 73.3 %; NEUTROPHILS ABSOLUTE 6.46 10/3/uL (2.02-8.40); PLATELET COUNT 493 10/3/uL (150-400); RBC DISTRIBUTION WIDTH 13.7 % (12.0-16.0); RED CELL COUNT 2.98 10/6/uL (4.0-5.6); WHITE BLOOD CELLS 8.8 10/3/uL (4.5-10.5)
[2017-01-27 04:31] LABS: MANUAL DIFF NO %
[2017-01-27 04:44] LABS: BUN (BLOOD UREA NITROGEN) 9 MG/DL (6-23); CALCIUM, SERUM 8.8 MG/DL (8.5-10.4); CHLORIDE, SERUM 103 MMOL/L (96-112); GFR AFRICAN AMERICAN 135 ML/MIN (>=60); GFR NON AFRICAN AMERICAN 117 ML/MIN (>=60); PHOSPHORUS, SERUM 4.2 MG/DL (2.5-4.5); POTASSIUM, SERUM 4.1 MMOL/L (3.5-5.3)
[2017-01-27 04:46] LABS: CO2 (CARBON DIOXIDE) 24 MMOL/L (24-34); GLUCOSE, SERUM 94 MG/DL (60-99); SODIUM, SERUM 134 MMOL/L (135-148)
[2017-01-28 04:28] LABS: BASOPHILS 0.3 %; BASOPHILS ABSOLUTE 0.02 10/3/uL (0.0-0.16); EOSINOPHILS 0.3 %; EOSINOPHILS ABSOLUTE 0.02 10/3/uL (0.0-0.53); HEMATOCRIT 29.4 % (36.0-48.0); IMMATURE GRANULOCYTES 1.4 %; LYMPHOCYTES ABSOLUTE 1.39 10/3/uL (0.67-4.30); MEAN CORPUSCULAR HEMOGLOB 31.6 pg (26.0-34.0); MEAN PLATELET VOLUME 7.8 fL (9.2-13.0); MONOCYTES 10.4 %; MONOCYTES ABSOLUTE 0.76 10/3/uL (0.21-1.20); NEUTROPHILS 68.6 %; NEUTROPHILS ABSOLUTE 5.03 10/3/uL (2.02-8.40); PLATELET COUNT 512 10/3/uL (150-400); RBC DISTRIBUTION WIDTH 13.6 % (12.0-16.0); RED CELL COUNT 3.16 10/6/uL (4.0-5.6); WHITE BLOOD CELLS 7.3 10/3/uL (4.5-10.5)
[2017-01-28 04:31] LABS: MANUAL DIFF NO %
[2017-01-28 04:40] LABS: ALBUMIN 2.9 G/DL (3.5-5.0); BUN (BLOOD UREA NITROGEN) 8 MG/DL (6-23); CALCIUM, SERUM 8.6 MG/DL (8.5-10.4); CHLORIDE, SERUM 102 MMOL/L (96-112); CO2 (CARBON DIOXIDE) 26 MMOL/L (24-34); CREATININE 0.44 MG/DL (0.55-1.02); GFR AFRICAN AMERICAN 141 ML/MIN (>=60); GFR NON AFRICAN AMERICAN 122 ML/MIN (>=60); GLUCOSE, SERUM 109 MG/DL (60-99); PHOSPHORUS, SERUM 3.5 MG/DL (2.5-4.5); POTASSIUM, SERUM 3.9 MMOL/L (3.5-5.3); SODIUM, SERUM 135 MMOL/L (135-148)
[2017-01-29 05:57] LABS: A/G RATIO 0.8 (0.7-1.9); ALKALINE PHOSPHATASE 92 U/L (45-117); BUN (BLOOD UREA NITROGEN) 6 MG/DL (6-23); CALCIUM, SERUM 9.1 MG/DL (8.5-10.4); CHLORIDE, SERUM 100 MMOL/L (96-112); CO2 (CARBON DIOXIDE) 23 MMOL/L (24-34); CREATININE 0.37 MG/DL (0.55-1.02); GFR AFRICAN AMERICAN 150 ML/MIN (>=60); GFR NON AFRICAN AMERICAN 129 ML/MIN (>=60); GLOBULIN 3.7 G/DL (2.5-4.1); GLUCOSE, SERUM 96 MG/DL (60-99); PHOSPHORUS, SERUM 3.6 MG/DL (2.5-4.5); POTASSIUM, SERUM 3.5 MMOL/L (3.5-5.3); PREALBUMIN 25.3 MG/DL (17.0-43.0); SGOT(AST) 14 U/L (5-40); SGPT(ALT) 21 U/L (5-65); SODIUM, SERUM 133 MMOL/L (135-148); TOTAL BILIRUBIN 0.4 MG/DL (0-1.2)
[2017-01-29 06:01] LABS: TOTAL PROTEIN 6.7 G/DL (6.0-8.5)
[2017-01-30] MEDS ORDERED: PROAIR HFA INH (12:36)
[2017-01-30] MEDS ORDERED: MEDROLPAK4 PO (12:37)
[2017-01-30] MEDS ORDERED: SYMBICORT 80/4.1 INH INH (12:37)
== END 2017-01-30 13:58 | disposition home or self-care (01) | DRG 853 ==
LOC: ER 21:53 → 7NO 22:31 → MIC 01-21 09:32 → 7NO 01-28 08:10
PROVIDERS: Emergency Medicine; Hospitalist; Internal Medicine; Internal Medicine Critical Care Medicine; Internal Medicine Pulmonary Disease; Nurse Practitioner
PROC: 5A1945Z Respiratory Ventilation, 24-96 Consecutive Hours (ICD-10-PCS; principal; 2017-01-22)
PROC: 0B9F8ZX Drainage of Right Lower Lung Lobe, Via Natural or Artificial Opening Endoscopic, Diagnostic (ICD-10-PCS; 2017-01-22)
PROC: 0BH17EZ Insertion of Endotracheal Airway into Trachea, Via Natural or Artificial Opening (ICD-10-PCS; 2017-01-22)
DX: A41.9 Sepsis, unspecified organism (principal); J18.9 Pneumonia, unspecified organism; J96.01 Acute respiratory failure with hypoxia; E87.1 Hypo-osmolality and hyponatremia; F31.9 Bipolar disorder, unspecified; F41.9 Anxiety disorder, unspecified; F17.210 Nicotine dependence, cigarettes, uncomplicated; J44.9 Chronic obstructive pulmonary disease, unspecified; Z98.890 Other specified postprocedural states; Z90.49 Acquired absence of other specified parts of digestive tract; Z82.49 Family history of ischemic heart disease and other diseases of the circulatory system; Z80.8 Family history of malignant neoplasm of other organs or systems; Z83.3 Family history of diabetes mellitus; Z83.6 Family history of other diseases of the respiratory system; Z87.01 Personal history of pneumonia (recurrent)
CPT/HCPCS: 31646; 31720; 36569; 36600; 71010; 71020; 74000; 80048; 80053; 80069; 80156; 80202; 80305; 81001; 82550; 82553; 82784; 82785; 82805; 82962; 83516; 83516-59; 83520; 83605; 83735; 83880; 84100; 84134; 84145; 84443; 84484; 85025; 85610; 85730; 86039; 86255; 87015; 87040; 87070; 87102; 87116; 87205; 87389; 87449; 87493; 87493-59; 87641; 87804; 88112; 88312; 89051; 93005; 93306; 94002; 94003; 94640; 94660; 96374; 97161-GP; 99285; A9270-GY; C1751; C1894; C9113; J0456; J0692; J1120; J1720; J1940; J1956; J2405; J2543; J2920; J3010; J3370; J3475; P9047